=== PATIENT | female | born 1940 | race Caucasian/White ===

== ENCOUNTER 2016-09-17 08:51 | Inpatient (IN) | payer MEDICARE, OTHER ==
[2016-09-17] MEDS ORDERED: Aspirin Low Dose CHEW TAB* 81 MG ONE (09:05)
[2016-09-17] MEDS ORDERED: Heparin for STEMI(*) 5,000 UNITS/ML 1 ML VIAL IV ONE ×2 (09:05→09:07)
[2016-09-17] MEDS ORDERED: NS 0.9% 1000 ML* 1,000 ML IV ONE (09:07)
[2016-09-17] MEDS ORDERED: Aspirin Low Dose CHEW TAB* 81 MG PO ONE (09:07)
[2016-09-17] MEDS ORDERED: Midazolam* 1 MG/ML 5 ML VIAL (5 MG) ONE (09:11)
[2016-09-17] MEDS ORDERED: Iohexol 350 (CONTRAST) 200 ML MDV IV ONE (09:11)
[2016-09-17] MEDS ORDERED: Heparin 2 UNITS/ML IVPREMIX* 2,000 ML IV ONE (09:11)
[2016-09-17] MEDS ORDERED: fentaNYL* 50 MCG/ML 2 ML VIAL (100 MCG VIAL) ONE (09:11)
[2016-09-17] MEDS ORDERED: Lidocaine 1% INJ* 10 MG/ML 30 ML SDV ONE (09:11)
[2016-09-17] MEDS ORDERED: VERAPAMIL 2.5 MG/ML 4 ML VIAL ONE (09:12)
[2016-09-17] MEDS ORDERED: nitroGLYCERIN DRIP* 250 ML ONE (09:12)
[2016-09-17] MEDS ORDERED: Heparin(*) 1000 UNIT/ML 10 ML VIAL CATH LAB IV ONE (09:19)
[2016-09-17] MEDS ORDERED: Iodixanol* (CONTRAST) 320 MG/ML 100 ML SDV ONE ×2 (09:22→09:49)
[2016-09-17 09:24] LABS: Hematocrit 47 % (35-47); Hemoglobin 15.5 g/dl (12.0-16.0); Mean Corpuscular HGB Conc 33 g/dl (31-36); Mean Corpuscular Hemoglobin 28 pg (27-31); Mean Corpuscular Volume 86 fL (80-97); Mean Platelet Volume 7 um3 (7.4-10.4); Red Blood Count 5.47 10^6/ul (4.0-5.4); Red Cell Distribution Width 14 % (10.5-15); White Blood Count 7.8 10^3/ul (3.5-10.8)
[2016-09-17 09:38] LABS: Albumin 4.1 g/dL (3.2-5.2); BUN/Creatinine Ratio 28.3 (8-20); EGFR African American 76.3 (>60); EGFR Non-African American 59.4 (>60); Globulin 2.9 g/dL (2-4); Magnesium 2.1 mg/dL (1.9-2.7); Potassium 3.8 mmol/L (3.5-5.0); Total Bilirubin 0.5 mg/dL (0.2-1.0)
[2016-09-17 09:39] LABS: Troponin I 0.02 ng/mL (<0.04)
--- NOTE | 2016-09-17 09:41 | ED ---
Bill Mcdonald Adam, scribed for Morris Light MD on 09/17/16 at 0920 . HPI Chest Pain - HPI Summary HPI Summary: Pt is a 75 year old female presenting with CP that set on at 07:00 this morning while she was feeding her animals. She describes it as a discomfort that radiates across her chest. It does not radiate to her arms. She also c/o diaphoresis and SOB. Negative PMHx of SD. Negative tobacco/alcohol use. FMHx positive for CAD. - History of Current Complaint Chief Complaint: EDChestPainROMI Time Seen by Provider: 09/17/16 08:55 Hx Obtained From: Patient Onset/Duration: Started Hours Ago, Atraumatic, Still Present Timing: Constant Initial Severity: Moderate Current Severity: Moderate Pain Intensity: 5 Pain Scale Used: 0-10 Numeric Chest Pain Location: Diffuse Chest Pain Radiates: Yes Chest Pain Radiates To:: Other - Across chest Character: Other: - Discomfort Aggravating Factor(s): Nothing Alleviating Factor(s): Nothing Associated Signs and Symptoms: Positive: Shortness of Breath, Diaphoresis - Allergy/Home Medications Allergies/Adverse Reactions: Allergies Allergy/AdvReac Type Severity Reaction Status Date / Time Allopurinol Allergy Unknown Verified 09/17/16 08:56 Reaction Details Celecoxib [From Celebrex] Allergy Dizziness Verified 09/17/16 08:56 PMH/Surg Hx/FS Hx/Imm Hx Endocrine/Hematology History: Denies: Hx Diabetes, Hx Thyroid Disease Cardiovascular History: Reports: Hx Hypertension - borderline Denies: Hx Hypercholesterolemia, Hx Pacemaker/ICD, Hx Peripheral Vascular Disease Musculoskeletal History: Reports: Hx Arthritis, Hx Scoliosis - HX OF KYPHOSIS Denies: Hx Rheumatoid Arthritis, Hx Osteoporosis Sensory History: Denies: Hx Cataracts, Hx Contacts or Glasses, Hx Glaucoma, Hx Hearing Aid Opthamlomology History: Denies: Hx Cataracts, Hx Contacts or Glasses, Hx Glaucoma Neurological History: Denies: Hx Headaches, Hx Seizures, Hx Transient Ischemic Attacks (TIA) Psychiatric History: Reports: Hx Anxiety Denies: Hx Depression, Hx Panic Disorder - Cancer History Cancer Type, Location and Year: SKIN CA. LEUKEMIA 1992 - Surgical History Surgery Procedure, Year, and Place: pilonoidal cyst (1957) tubes tied (1979) Jeancarlos 's surgery for skin cancer (2008) Infectious Disease History: No Infectious Disease History: Denies: Traveled Outside the [place] in Last 30 Days - Family History Known Family History: Positive: Cardiac Disease - CAD - Social History Occupation: Retired Lives: Alone Alcohol Use: None Hx Tobacco Use: No Smoking Status (MU): Never Smoked Tobacco Review of Systems Positive: Skin Diaphoresis Positive: Chest Pain Positive: Shortness Of Breath All Other Systems Reviewed And Are Negative: Yes Physical Exam - Summary Physical Exam Summary: The patient is well-nourished in no acute distress and in no acute pain. The skin is diaphoretic. HEENT: The head is normocephalic and atraumatic. The pupils are equal and reactive. The conjunctivae are clear and without drainage. Nares are patent and without drainage. Mouth reveals moist mucous membranes and the throat is without erythema and exudate. The external ears are intact. Neck is supple with full range of motion and non-tender. There are no carotid bruits. There is no neck vein distension. Respiratory: Chest is non-tender. Lungs are clear to auscultation and breath sounds are symmetrical and equal. Cardiovascular: Heart is bradycardic. Abdomen: The abdomen is soft and non-tender. There are normal bowel sounds heard in all four quadrants and there is no organomegaly palpated. Musculoskeletal: There is no back pain noted. Extremities are non-tender with full range of motion. There is good capillary refill. There is no peripheral edema or calf tenderness elicited. Neurological: Patient is alert and oriented to person, place and time. She is able to follow commands. The patient has symmetrical motor strength in all four extremities. Cranial nerves are grossly intact. Deep tendon reflexes are symmetrical and equal in all four extremities. Psychiatric: The patient has an appropriate affect and does not exhibit any anxiety or depression. Triage Information Reviewed: Yes Vital Signs On Initial Exam: Initial Vitals Temp Pulse Resp BP Pulse Ox 96 F 50 17 165/84 96 09/17/16 08:56 09/17/16 08:56 09/17/16 08:56 09/17/16 08:56 09/17/16 08:56 Vital Signs Reviewed: Yes Diagnostics - Vital Signs Vital Signs Temp Pulse Resp BP Pulse Ox 09/17/16 08:56 96 F 50 17 165/84 96 - Laboratory Lab Results: Lab Results 09/17/16 09/17/16 Range/Units 09:10 09:10 WBC 7.8 (3.5-10.8) 10^3/ul RBC 5.47 H (4.0-5.4) 10^6/ul Hgb 15.5 (12.0-16.0) g/dl Hct 47 (35-47) % MCV 86 (80-97) fL MCH 28 (27-31) pg MCHC 33 (31-36) g/dl RDW 14 (10.5-15) % Plt Count 226 (150-450) 10^3/ul MPV 7 L (7.4-10.4) um3 Neut % (Auto) 69.2 (38-83) % Lymph % (Auto) 20.6 L (25-47) % [place] % (Auto) 7.5 (1-9) % Eos % (Auto) 2.1 (0-6) % Baso % (Auto) 0.6 (0-2) % Absolute Neuts (auto) 5.4 (1.5-7.7) 10^3/ul Absolute Lymphs (auto) 1.6 (1.0-4.8) 10^3/ul Absolute Monos (auto) 0.6 (0-0.8) 10^3/ul Absolute Eos (auto) 0.2 (0-0.6) 10^3/ul Absolute Basos (auto) 0 (0-0.2) 10^3/ul Absolute Nucleated RBC 0 10^3/ul Nucleated RBC % 0 Sodium 137 (133-145) mmol/L Potassium 3.8 (3.5-5.0) mmol/L Chloride 105 (101-111) mmol/L Carbon Dioxide 24 (22-32) mmol/L Anion Gap 8 (2-11) mmol/L BUN 26 H (6-24) mg/dL Creatinine 0.92 (0.51-0.95) mg/dL Est GFR ( Amer) 76.3 (>60) Est GFR (Non-Af Amer) 59.4 (>60) BUN/Creatinine Ratio 28.3 H (8-20) Glucose 164 H (70-100) mg/dL Calcium 10.0 (8.6-10.3) mg/dL Magnesium 2.1 (1.9-2.7) mg/dL Total Bilirubin 0.50 (0.2-1.0) mg/dL AST 26 (13-39) U/L ALT 22 (7-52) U/L Alkaline Phosphatase 64 (34-104) U/L Total Creatine Kinase 46 (10-223) U/L CK-MB (CK-2) Pending Troponin I 0.02 (<0.04) ng/mL Total Protein 7.0 (6.4-8.9) g/dL Albumin 4.1 (3.2-5.2) g/dL Globulin 2.9 (2-4) g/dL Albumin/Globulin Ratio 1.4 (1-3) LDL Cholesterol Direct 129 mg/dL Result Diagrams: 09/17/16 09:10 09/17/16 09:10 Lab Statement: Any lab studies that have been ordered have been reviewed, and results considered in the medical decision making process. - EKG 08:57 Cardiac Rate: Bradycardia - 48 BPM EKG Interpretation: ST elevations at II, III, and aVF with reciprocal changes at I, aVL, V2, V3 Chest Pain Course/Dx - Course Course Of Treatment: STEMI called at 09:04. Assessment/Plan: 09:10 - Dr. Campoverde has been made aware of the patient. She will go to the equipment operator/laborer/supervisor and be given ASA and heparin. - Diagnoses Provider Diagnoses: Acute ST elevation myocardial infarction (STEMI) During the Visit The Following Alert/Code Occurred: STEMI - Provider Notifications Discussed Care Of Patient With: Dr. Campoverde (interventional cardiology) at 09: 08. He is aware of the patient. - Critical Care Time Critical Care Time: 30-74 min - 30 minutes of criticial care time Discharge - Discharge Plan Condition: Stable Disposition: ADMITTED TO [facility] documentation as recorded by the Bill herndon Adam accurately reflects the service I personally performed and the decisions made by , Morris Light MD.
[2016-09-17] MEDS ORDERED: NitroPRUSSide* 25 MG/ML 2 ML VIAL IVPB ONE (10:34)
[2016-09-17] MEDS ORDERED: Atropine SYRINGE* 0.1 MG/ML 10 ML SYRINGE (1 MG) ONE (10:34)
[2016-09-17] MEDS ORDERED: Norepinephrine 16MCG/ML IVPRE* 4,000 MCG/250 ML BAG IV ONE (10:35)
[2016-09-17] MEDS ORDERED: Nitroglycerin TAB 0.4 MG* 0.4 MG TAB SL PRN (10:50)
[2016-09-17] MEDS ORDERED: Atropine 1MG/ML INJ* 1 ML VIAL IV PUSH PRN (10:54)
[2016-09-17] MEDS ORDERED: Acetaminophen TAB* 325 MG PO PRN (10:54)
[2016-09-17] MEDS ORDERED: Ticagrelor* 90 MG TAB PO STA (10:59)
[2016-09-17] MEDS ORDERED: NS 0.9% 1000 ML* 1,000 ML IV SCH (11:00)
[2016-09-17] MEDS: Metoprolol Tartrate TAB* 25 MG PO SCH ×2 (11:34→20:28)
[2016-09-17] MEDS ORDERED: traMADol TAB* 50 MG PO PRN (12:15)
[2016-09-17 15:24] LABS: Troponin I 9.3 ng/mL (<0.04)
[2016-09-17] MEDS: Omeprazole CAP* 20 MG PO SCH (17:28)
[2016-09-17] MEDS: Atorvastatin* 80 MG TAB PO SCH (17:28)
--- NOTE | 2016-09-17 17:37 | HP ---
HISTORY AND PHYSICAL: DATE OF ADMISSION: 09/17/16 PRIMARY CARE PHYSICIAN: Dr. Greta Casey. HISTORY OF PRESENT ILLNESS: A 75-year-old woman presenting to the ER with inferior wall ST-elevation infarct. She has no previous cardiac history. This morning, she developed severe chest pain with dyspnea, malaise. She presented in the ER, EKG at 0857 hours revealed sinus thom at 48, with inferior ST-elevation infarct with [address] elevation in II and aVF, minimal J-point ST elevation in V6, and reciprocal ST depression in I and aVL, V2 through V4. She received aspirin and heparin, was brought to the cardiac cath rn, still complaining of chest discomfort. In retrospect, she has not had any cardiac symptoms, has not had any change in exercise tolerance. She has chronic orthopedic pain issues. She does not regularly take aspirin, but tolerates it. She has a remote history of iron deficiency anemia with apparently no bleeding source found in the past, has had a normal hemoglobin on iron. PAST MEDICAL HISTORY: History of iron deficiency anemia; history of hairy cell leukemia; hypertension; hyperlipidemia with LDL of 127 in 2014; CKD, stage III, with a creatinine as high as 1.2 in the past. PREHOSPITAL MEDICATION: List pending. ALLERGIES: ALLOPURINOL and CELEBREX. FAMILY HISTORY: Negative for premature coronary disease. SOCIAL HISTORY: She is retired from [employer]. She is a nonsmoker. REVIEW OF SYSTEMS: General: No weight loss. No fevers. EMT INTERMEDIATE: No history of TIA or CVA. GI: History of iron deficiency anemia with apparently previous negative GI workup without any observed bleeding recently. Circulatory: No claudication. Remainder all negative. PHYSICAL EXAMINATION VITAL SIGNS: She was to tachypneic and in moderate pain, in moderate distress in the ER. BP initially 165/84, heart rate 50, she was afebrile. HEENT: Normal without xanthelasma, scleral injection, or jaundice. NECK: JVP and carotids normal. No bruits. No thyromegaly. LUNGS: She had a few rhonchi. No rales or wheezes. CARDIAC: Chest wall nontender, RV and apex not palpable, normal heart sounds, no gallop, murmur, or rub. ABDOMEN: Soft, nontender, no bruit. Aorta and liver not palpable. Femoral pulses 2+. EXTREMITIES: Radial pulses palpable, but the patient has a very small radial artery, the patient weighs around 50 kilos. Femoral's 2+, no bruits. Pedal pulses were normal. No cyanosis, clubbing, or edema. PSYCH: Oriented and appropriate. SKIN: Slightly cool and diaphoretic. DIAGNOSTIC STUDIES/LAB DATA: EKG as above. CBC unremarkable with hemoglobin of 15.5, normal platelet count, normal MCV. Chemistries normal aside from creatinine of 0.92, BUN 26, GFR 59.4, lactate elevated at 2.1. Her BNP normal at 37. LDL pending. IMPRESSION: 1. Inferior wall ST-elevation infarct. She underwent emergent catheterization. 2. Hypertension, controlled. 3. Hyperlipidemia. She will be started on high-dose potent statin. 4. History of iron-deficiency anemia, apparently no longer an issue. CC: Dr. Greta Casey; Dr. Skinny Campoverde* [id number]/[facility] #: [id number] MTDD
[2016-09-17] MEDS: Ticagrelor* 90 MG TAB PO SCH (20:28)
[2016-09-18 02:53] LABS: Hematocrit 42 % (35-47); Mean Corpuscular HGB Conc 34 g/dl (31-36); Mean Corpuscular Hemoglobin 29 pg (27-31); Mean Corpuscular Volume 85 fL (80-97); Mean Platelet Volume 8 um3 (7.4-10.4); Red Blood Count 4.89 10^6/ul (4.0-5.4); Red Cell Distribution Width 13 % (10.5-15); White Blood Count 8.7 10^3/ul (3.5-10.8)
[2016-09-18 03:02] LABS: BUN/Creatinine Ratio 25.3 (8-20); Calcium 9.2 mg/dL (8.6-10.3); EGFR Non-African American 66.8 (>60); HDL Cholesterol 52.1 mg/dL; Potassium 3.5 mmol/L (3.5-5.0)
[2016-09-18] MEDS: Metoprolol Tartrate TAB* 25 MG PO SCH ×3 (03:48→19:13)
[2016-09-18] MEDS: Omeprazole CAP* 20 MG PO SCH (06:35)
[2016-09-18] MEDS: Ticagrelor* 90 MG TAB PO SCH ×2 (08:02→21:28)
[2016-09-18] MEDS: Aspirin Low Dose CHEW TAB* 81 MG PO SCH (08:02)
[2016-09-18] MEDS: Fluticasone NASAL SPRAY 50MCG* 16 gm SPRAY BTL BOTH NARES SCH (10:16)
[2016-09-18] MEDS: Potassium Chlor TAB* 20 MEQ TAB.ER PO SCH ×2 (10:16→12:54)
[2016-09-18 11:30] LABS: Troponin I 7.84 ng/mL (<0.04)
[2016-09-18] MEDS: Atorvastatin* 80 MG TAB PO SCH (16:58)
[2016-09-19] MEDS: Metoprolol Tartrate TAB* 25 MG PO SCH ×3 (03:21→20:04)
[2016-09-19] MEDS: Omeprazole CAP* 20 MG PO SCH (05:43)
[2016-09-19 05:57] LABS: Hematocrit 41 % (35-47); Hemoglobin 13.8 g/dl (12.0-16.0); Mean Corpuscular HGB Conc 33 g/dl (31-36); Mean Corpuscular Hemoglobin 29 pg (27-31); Mean Corpuscular Volume 85 fL (80-97); Mean Platelet Volume 8 um3 (7.4-10.4); Red Blood Count 4.82 10^6/ul (4.0-5.4); Red Cell Distribution Width 14 % (10.5-15); White Blood Count 5.6 10^3/ul (3.5-10.8)
[2016-09-19 06:22] LABS: BUN/Creatinine Ratio 21.7 (8-20); Calcium 9.1 mg/dL (8.6-10.3); EGFR Non-African American 66.8 (>60); Phosphorus 2.5 mg/dL (2.5-5.0); Potassium 3.9 mmol/L (3.5-5.0)
[2016-09-19 06:27] LABS: Troponin I 2.96 ng/mL (<0.04)
[2016-09-19] MEDS: Ticagrelor* 90 MG TAB PO SCH ×2 (08:13→20:04)
[2016-09-19] MEDS: Fluticasone NASAL SPRAY 50MCG* 16 gm SPRAY BTL BOTH NARES SCH (08:14)
[2016-09-19] MEDS: Aspirin Low Dose CHEW TAB* 81 MG PO SCH (08:14)
--- NOTE | 2016-09-19 08:50 | CATH ---
CC: Dr. Greta Casey; Skinny Campoverde MD STENT REPORT: DATE OF PROCEDURE: 09/17/16 PRIMARY CARE PHYSICIAN: Dr. Greta Casey. PROCEDURES: Right common femoral artery access, right femoral artery angiography, MynxGrip closure right common femoral artery, bilateral selective coronary cineangiography, left heart catheterizatio n, left ventriculography, stent placement RCA 3.0 x 12 Synergy drug-eluting stent. HISTORY: This 75-year-old woman with acute inferior wall ST elevation infarct. PROCEDURE ACCESS: Right femoral artery as her right radial was deemed to be too small. Sheath 6F. The patient's weight is 59 kilos. MEDICATIONS: 1. Subcu lidocaine. 2. IV Versed. 3. IV fentanyl. 4. Aspirin 324. 5. Heparin 4000 units IV in the ER. 6. landscaping and groundskeeping laborer heparin 2000 units IV. 7. Atropine 1 mg IV post revascularization for bradycardia. 8. Nipride 1000 mcg total IC post stenting with Levophed 16, 16, 32 mcg IV for blood pressure suppo rt. DIAGNOSTIC CATHETERS: 6FL 3.5, 6FR 4, 6F pigtail. Guiding catheter RCA 6F KR3S, wire 14 BMW used to deploy a 3.0 x 12 Synergy drug- eluting stent at 1 6 atmospheres 30 seconds, which was then post dilated with a 3 x 12 noncompliant balloon, 20 atmosph eres, 30 seconds, LV-gram was then performed. After initial right femoral artery access, the right groin was imaged, in positioning the shield, pa rtially pulled out the arterial sheath but it remained intra-arterial, however. With readvancement of the wire, there was a localized retrograde dissection which was traversed using a Wholey wire aft er the sheath was pulled out somewhat more distally, but still intraluminally. This was re-imaged a t that the end of the procedure. HEMODYNAMICS: Initial BP 116/80, LV post revascularization 114/6, no aortic valve gradient on pullb ack. ANGIOGRAPHY: RFA sheath entry is in segment 2, there is no stenosis. After the sheath was partiall y pulled out, there was a localized retrograde dissection at the tip of the sheath. Left Main: The left main is normal in size, has no stenosis. LAD: The LAD is moderate, extends to the apex, the LAD supplies a relatively small mid diagonal whi ch has minor proximal lumen irregularity but no significant stenosis. The LAD has no significant st enosis. The LAD supplies the infraapical segment. Circumflex: The circumflex is moderate, not dominant, supplies a moderate marginal and a smaller po sterolateral, the circumflex has no stenosis. There are no left to right collaterals. RCA: The RCA is moderate, dominant, mid RCA has a 95% stenosis, straddling 2 RV branches. Distal R CA has LANEY-2 flow. The PDA is very small followed by moderate posterolateral. After stent placement, post dilatation, there is no residual stenosis. There is slight delay of cap illary clearing even after 1000 mcg of IC Nipride, although chest pain was resolved, ST elevation wa s resolved. Distal RCA has no significant stenosis. Incidentally noted is a probable hiatal hernia with part of the stomach within the chest. LV-gram: There is mild localized mid inferior wall hypokinesis, LVEF of 55% to 60%. Reimaging of the right common femoral shows a widely patent external iliac and common femoral, with a nonobstructive retrograde dissection. Incidentally noted is right hydroureter with a fairly focal area of narrowing shortly after the pelvis, then reconstitution of the ureter and dilatation, then at the lower pelvis, the ureter is more normal in size. CONCLUSION: 1. Significant single vessel disease RCA with inferior wall ST elevation infarct. Excellent angiogr aphic result with drug-eluting stent placement. 2. Normal LVEF with very mild regional wall motion abnormality. 3. Normal left-sided hemodynamics. 4. 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 5. Successful MynxGrip closure, right common femoral artery. 6. Right hydroureter which will be pursued independently. [id number]/[facility] #: [id number]
[2016-09-19] MEDS: Atorvastatin* 80 MG TAB PO SCH (17:23)
[2016-09-20 08:01] VITALS: BP 144/82
[2016-09-20] MEDS: Aspirin Low Dose CHEW TAB* 81 MG PO SCH (08:13)
[2016-09-20] MEDS: Fluticasone NASAL SPRAY 50MCG* 16 gm SPRAY BTL BOTH NARES SCH (08:13)
[2016-09-20] MEDS: Metoprolol Tartrate TAB* 25 MG PO SCH (08:13)
[2016-09-20] MEDS ORDERED: Pantoprazole TAB (NF) 40 MG TAB PO SCH (09:00)
[2016-09-20] MEDS ORDERED: Clopidogrel TAB* 75 MG PO SCH (09:00)
--- NOTE | 2016-09-21 01:59 | DS ---
DISCHARGE SUMMARY: DATE OF ADMISSION: 09/17/16 DATE OF DISCHARGE: 09/20/16 PRIMARY: Dr. Greta Casey. DISCHARGE DIAGNOSES: 1. Inferior wall ST elevation infarct. 2. Right hydroureter. 3. Prior history of iron deficiency anemia. 4. History of hairy cell leukemia. 5. Hypertension. 6. Hyperlipidemia. 7. Chronic kidney disease stage 3. PROCEDURES: Cardiac cath, stent placement RCA 3.0 x 12 LIZETTE 09/17/16, Mynx Sand Cutter closure, right common femoral artery. Telemetry. CONDITION ON DISCHARGE: Stable. DISCHARGE MEDICATIONS: 1. Aspirin 81 mg daily. 2. Lipitor 80 mg daily. 3. Plavix 75 mg daily. 4. Lopressor 25 mg b.i.d. 5. Nitroglycerin 0.4 sublingual p.r.n. continued. 6. Tramadol p.r.n. 7. Flonase. 8. Calcium carbonate. 9. Vitamins. 10. Fish oil. 11. Melatonin. 12. Triamcinolone. 13. Multiple vitamins with iron. 14. Iron sulfate 325 b.i.d. 15. Voltaren gel. 16. Morgidox 100 mg p.o. p.r.n. 17. Alendronate. 18. Naprosyn to minimize daily dose and frequency of use. 19. Prilosec 20 mg daily. FOLLOWUP: Followup with Dr. Casey in [address] Campoverde next week for wound check. DISCHARGE INSTRUCTIONS: Activity: No strenuous exertion for 1 week, to not lift more than 20 pounds for 3 days. Wound care shower only for 3 days. Diet: Low fat, low cholesterol, cardiac. HISTORY: See H and P. LABORATORY DATA: On 09/19/16, BMP remained stable with creatinine 0.83, GFR 66.8. Her troponin peaked at 9.3, cholesterol was 117, triglycerides 117, LDL 95 , HDL 52.1. CBC remained stable, on 09/19/16 white count normal, hemoglobin 13.8, platelet count normal at 178,000. Her EKG post revascularization developed inferior T-wave inversion without Q waves. HOSPITAL COURSE: She presented with an inferior wall ST elevation infarct, underwent emergent catheterization, which revealed a high grade proximal RCA stenosis and incidental right hydroureter. Her urinary tract dilatation will be worked up as an outpatient by Dr. Casey. RCA stenosis was stented with a 3 x 12 drug-eluting stent, post dilated with a noncompliant balloon. LV gram showed very mild mid inferior wall hypokinesis with EF of 55%. There was a short localized nonobstructive retrograde dissection at the sheath entry site in the right common femoral, which was without clinical sequelae. Postprocedure , she had no groin complications. No further chest pain, no arrhythmias and no heart failure. She has small infarct by enzymes with preserved LVEF. She tolerated dual antiplatelet therapy, because of her use of her Naprosyn she is being discharged on Plavix and aspirin. She was asked to minimize Naprosyn dose and frequency of use as much as possible. She is on gastro protection, understands the somewhat increased GI bleeding risk. She is ambulatory, on the day of discharge, vitals stable. Her exam is unremarkable. There was no groin hematoma. She received full discharge instructions. CC: Dr. Greta Casey; Skinny Campoverde MD* [id number]/[facility] #: [id number] [facility] HOSPITALMakenzie
== END 2016-09-20 11:47 | disposition home or self-care (01) | DRG 247 ==
LOC: ED 08:51 → CHICATH 10:06 → ICU 11:14 → MEDTELE 09-18 14:56
PROVIDERS: ADMIT Internal Medicine Cardiovascular Disease; ATTEND Internal Medicine Cardiovascular Disease
PROC: 027034Z Dilation of Coronary Artery, One Artery with Drug-eluting Intraluminal Device, Percutaneous Approach (ICD-10-PCS; 2016-09-17)
PROC: B215YZZ Fluoroscopy of Left Heart using Other Contrast (ICD-10-PCS; 2016-09-17)
PROC: 4A023N7 Measurement of Cardiac Sampling and Pressure, Left Heart, Percutaneous Approach (ICD-10-PCS; 2016-09-17)
PROC: B41JYZZ Fluoroscopy of Other Lower Arteries using Other Contrast (ICD-10-PCS; 2016-09-17)
PROC: B211YZZ Fluoroscopy of Multiple Coronary Arteries using Other Contrast (ICD-10-PCS; principal; 2016-09-17 09:15)
DX: I21.19 ST elevation (STEMI) myocardial infarction involving other coronary artery of inferior wall (principal); N18.3 Chronic kidney disease, stage 3 (moderate); N13.4 Hydroureter; M19.90 Unspecified osteoarthritis, unspecified site; M41.9 Scoliosis, unspecified; F41.9 Anxiety disorder, unspecified; G89.29 Other chronic pain; E78.5 Hyperlipidemia, unspecified; Z79.02 Long term (current) use of antithrombotics/antiplatelets; I12.9 Hypertensive chronic kidney disease with stage 1 through stage 4 chronic kidney disease, or unspecified chronic kidney disease; K21.9 Gastro-esophageal reflux disease without esophagitis; F32.9 Major depressive disorder, single episode, unspecified; J34.89 Other specified disorders of nose and nasal sinuses; Z82.49 Family history of ischemic heart disease and other diseases of the circulatory system; Z88.8 Allergy status to other drugs, medicaments and biological substances; Z85.828 Personal history of other malignant neoplasm of skin; Z85.6 Personal history of leukemia; Z79.82 Long term (current) use of aspirin; I25.10 Atherosclerotic heart disease of native coronary artery without angina pectoris
CPT/HCPCS: 36415; 80048; 80053; 80061; 82550; 82553; 83605; 83721; 83735; 83880; 84100; 84484; 85025; 85027; 85610; 85730; 87086; 87641; 93005; A9270-GY; C1725; C1760; C1769; C1876; C1887; C9606-RC; J0461; J1644; J2001; J2250; J3010

== ENCOUNTER 2017-04-15 12:51 | Emergency (ER) | payer MEDICARE, OTHER ==
--- NOTE | 2017-04-15 17:23 | RAD ---
HISTORY: Fall from horse, anticoagulation COMPARISONS: None TECHNIQUE: Multiple contiguous axial CT scans were obtained of the head without intravenous contrast. FINDINGS: HEMORRHAGE/INFARCT: There is no hemorrhage or acute infarct. MASSES/SHIFT: There is no mass or shift. EXTRA-AXIAL SPACES: There are no extra-axial fluid collections. SULCI AND VENTRICLES: The sulci and ventricles are normal in size and position for the patient's stated age. CEREBRUM: There are no focal parenchymal abnormalities. BRAINSTEM: There are no focal parenchymal abnormalities. CEREBELLUM: There are no focal parenchymal abnormalities. VESSELS: The vessels are grossly normal. PARANASAL SINUSES: The paranasal sinuses are clear. ORBITS: The orbits are unremarkable. BONES AND SOFT TISSUE: No bone or soft tissue abnormalities are noted. OTHER: None IMPRESSION: NO ACUTE INTRACRANIAL PATHOLOGY.
--- NOTE | 2017-04-15 17:37 | RAD ---
HISTORY: Fall from horse, trauma one week ago no other history is provided COMPARISONS: None TECHNIQUE: Multiple contiguous axial CT scans were obtained of the cervical spine without intravenous contrast, with coronal and sagittal multiplanar reformations. FINDINGS: BRAIN: The visualized brain is unremarkable CENTRAL CANAL: Evaluation of the central canal is limited on CT technique, however there is no obvious canalicular mass or epidural hemorrhage. ALIGNMENT: There is a scoliotic curvature of the spine VERTEBRAL BODIES: There is diffuse osteopenia. Is multilevel anterolateral marginal osteophyte formation. There is no displaced fracture or dislocation. JOINTS: There is diffuse uncovertebral and facet osteoarthritis. There is osteoarthritis of the atlantoaxial articulation. MUSCULATURE: Unremarkable INTERVERTEBRAL DISCS: There is diffuse loss of intervertebral disc height. AXIAL IMAGES: There is multilevel degenerative disc disease and osteoarthritis, without osseous neural foraminal narrowing or central canal stenosis. SOFT TISSUES: The visualized soft tissues of the neck are unremarkable. The prevertebral fat stripe is preserved. OTHER: There is a 1.2 cm right thyroid nodule IMPRESSION: 1. OSTEOPENIA. 2. DEGENERATIVE DISC DISEASE AND OSTEOARTHRITIS. 3. RIGHT THYROID NODULE. RECOMMEND CORRELATION WITH DEDICATED IMAGING OF THE THYROID IN THE NONACUTE SETTING. 4. NO ACUTE OSSEOUS INJURY TO THE CERVICAL SPINE
--- NOTE | 2017-04-15 17:40 | RAD ---
HISTORY: Fall, subacute trauma COMPARISONS: None TECHNIQUE: Multiple contiguous axial CT scans were obtained of the thoracic spine without intravenous contrast, with coronal and sagittal multiplanar reformations. FINDINGS: SPINAL CANAL: Evaluation of the central canal is limited on CT technique; however, there is no obvious canalicular mass or epidural hemorrhage. ALIGNMENT: There is a scoliotic curvature of the spine VERTEBRAL BODIES: The vertebral bodies are preserved in height. The bones are normal in attenuation. There is multilevel anterolateral marginal osteophyte formation. There is no displaced fracture. JOINTS: There is osteoarthritis of the costovertebral articulations. MUSCULATURE: Unremarkable INTERVERTEBRAL DISCS: There is diffuse loss of intervertebral disc height throughout the spine. AXIAL IMAGES: There is no osseous central canal stenosis or neuroforaminal narrowing. SOFT TISSUES: There is a large reid hernia. OTHER: None IMPRESSION: 1. OSTEOPENIA. 2. DEGENERATIVE DISC DISEASE AND OSTEOARTHRITIS. 3. NO SIGNIFICANT OSSEOUS NEURAL FORAMINAL NARROWING OR CENTRAL CANAL STENOSIS. 4. NO ACUTE OSSEOUS INJURY TO THE THORACIC SPINE. 5. SCOLIOSIS. 6. LARGE HIATAL HERNIA
--- NOTE | 2017-04-15 17:42 | RAD ---
HISTORY: Fall from horse, subacute trauma COMPARISONS: MRI dated May 12, 2014 TECHNIQUE: Multiple contiguous axial CT scans were obtained of the lumbar spine without intravenous contrast, with coronal and sagittal multiplanar reformations. FINDINGS: SPINAL CANAL: Evaluation of the central canal is limited on CT technique; however, there is no obvious canalicular mass or epidural hemorrhage. ALIGNMENT: There is a scoliotic curvature of the spine. VERTEBRAL BODIES: There are nondisplaced fractures of the transverse processes of L1, L2, L3, and L4 on the right. There is diffuse osteopenia. Is multilevel anterolateral marginal osteophyte formation. JOINTS: There is diffuse facet osteoarthritis. MUSCULATURE: Unremarkable INTERVERTEBRAL DISCS: There is diffuse loss of intervertebral disc height throughout the spine. AXIAL IMAGES: On axial images, there is multilevel neural foraminal narrowing most pronounced along the lower lumbar spine, there is no osseous central canal stenosis. SOFT TISSUES: The visualized soft tissues of the abdomen are unremarkable. OTHER: There is a nondisplaced fracture of the right 12th rib. IMPRESSION: 1. NONDISPLACED FRACTURES OF THE TRANSVERSE PROCESSES OF L1, L2, L3, AND L4 ON THE RIGHT, WITH A NONDISPLACED FRACTURE OF THE RIGHT 12TH RIB. 2. OSTEOPENIA. 3. DEGENERATIVE DISC DISEASE AND OSTEOARTHRITIS. 4. SCOLIOSIS.
--- NOTE | 2017-04-15 18:11 | ED ---
Adult Trauma - HPI Summary HPI Summary: Pt here w/ back pain and feeling loose parts in her back since fall from horse last week. Landed directly on her back. She has been ambulating well and denies numbness, tingling, weakness, change in bowels/bladder function. She is breathing well and w/o pain. Only pain she has is when she tries to clean out her horse stalls - most notably between shoulder blades but also along Rt lower axillary/side - noticed pain in back with lifting and throwing hay. Spoke w/ Dr. Long who told her to go to ED. She has scoliosis, DDD and osteopenia which gives her chronic pain but she manages. Enjoys being active and is upset that she has not been able to take care of her horses d/t pain. - History of Current Complaint Chief Complaint: EDBackInjuryPain Stated Complaint: NEEDS XRAY OF SPINE Time Seen by Provider: 04/15/17 16:27 Hx Obtained From: Patient Pain Intensity: 0 - Additional Pertinent History Primary Care Physician: [id number] - Allergy/Home Medications Allergies/Adverse Reactions: Allergies Allergy/AdvReac Type Severity Reaction Status Date / Time Allopurinol Allergy Mild Rash Verified 03/11/17 09:44 Celecoxib [From Celebrex] Allergy Mild Dizziness Verified 03/11/17 09:44 PMH/Surg Hx/FS Hx/Imm Hx Previously Healthy: Yes Endocrine/Hematology History: Reports: Hx Anticoagulant Therapy - pradaxa, ASA Denies: Hx Diabetes, Hx Thyroid Disease Cardiovascular History: Reports: Hx Coronary Artery Disease, Hx Hypertension, Hx Myocardial Infarction - stent Denies: Hx Hypercholesterolemia, Hx Pacemaker/ICD, Hx Peripheral Vascular Disease History: Reports: Other Problems/Disorders - 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 Denies: Hx Dialysis, Hx Renal Disease Musculoskeletal History: Reports: Hx Arthritis, Hx Osteoporosis - osteopenia, Hx Scoliosis - HX OF KYPHOSIS Denies: Hx Rheumatoid Arthritis Sensory History: Denies: Hx Cataracts, Hx Contacts or Glasses, Hx Glaucoma, Hx Hearing Aid Opthamlomology History: Denies: Hx Cataracts, Hx Contacts or Glasses, Hx Glaucoma Neurological History: Denies: Hx Headaches, Hx Seizures, Hx Transient Ischemic Attacks (TIA) Psychiatric History: Reports: Hx Anxiety Denies: Hx Depression, Hx Panic Disorder - Cancer History Cancer Type, 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, in remission - Surgical History Surgery Procedure, Year, and Place: pilonoidal cyst (1958) tubes tied (1979) Jeancarlos 's surgery for skin cancer (2008) Infectious Disease History: No Infectious Disease History: Denies: Hx of Known/Suspected MRSA, Traveled Outside the [place] in Last 30 Days - Family History Known Family History: Positive: Cardiac Disease - CAD - Social History Occupation: Retired - works in [employer] Lives: Alone - "I'm anti-social" Alcohol Use: None Hx Substance Use: No Substance Use Type: Reports: None Substance Use Comment - Amount & Last Used: unknwon Hx Tobacco Use: No Smoking Status (MU): Never Smoked Tobacco Review of Systems Constitutional: Negative Negative: Fatigue Eyes: Negative Negative: Photophobia, Blurred Vision, Diplopia ENT: Negative Negative: Dental Pain Cardiovascular: Negative Negative: Chest Pain Respiratory: Negative Negative: Shortness Of Breath, Cough Gastrointestinal: Negative Negative: Abdominal Pain, Vomiting, Diarrhea, Nausea Negative: incontinence Positive: Arthralgia, Myalgia - see HPI Skin: Negative Neurological: Negative Negative: Headache, Weakness, Paresthesia, Numbness, Syncope, Slurred Speech Psychological: Normal All Other Systems Reviewed And Are Negative: Yes Physical Exam Triage Information Reviewed: Yes Vital Signs On Initial Exam: Initial Vitals Temp Pulse Resp BP Pulse Ox 97.2 F 55 16 186/85 98 04/15/17 12:56 04/15/17 12:56 04/15/17 12:56 04/15/17 12:56 04/15/17 12:56 Vital Signs Reviewed: Yes Appearance: Positive: Well-Appearing, No Pain Distress - at rest, Well- Nourished - kyphotic posture Skin: Positive: Warm, Dry Head/Face: Positive: Normal Head/Face Inspection Eyes: Positive: Normal, EOMI, LULU, Conjunctiva Clear ENT: Positive: Normal ENT inspection, Hearing grossly normal, TM bulging - no hemotympanum. Negative: Nasal drainage Neck: Positive: Supple, Nontender Respiratory/Lung Sounds: Positive: Clear to Auscultation, Breath Sounds Present. Negative: Subcutaneous Emphysema, Tracheal Deviation, Unable to speak in full sentences, Other - flail chest Cardiovascular: Positive: Normal, RRR, Pulses are Symmetrical in both Upper and Lower Extremities Abdomen Description: Positive: Nontender, No Organomegaly, Soft Bowel Sounds: Positive: Present Musculoskeletal: Positive: Strength/ROM Intact, Pain @ - paracervical thoracic/ lumbar region and spinous pp; scoliosis w/ kyphosis Neurological: Positive: Normal, Sensory/Motor Intact, Alert, Oriented to Person Place, Time, CN Intact II-III Psychiatric: Positive: Normal, Other - irritable, inpatient - [place] Coma Scale Coma Scale Total: 15 Diagnostics - Vital Signs Vital Signs Temp Pulse Resp BP Pulse Ox 04/15/17 15:24 97.5 F 56 22 176/84 100 04/15/17 12:56 97.2 F 55 16 186/85 98 - Laboratory Lab Statement: Any lab studies that have been ordered have been reviewed, and results considered in the medical decision making process. Adult Trauma Course/Dx - Course Course Of Treatment: Pt here w/ fall from horse 1 week ago. She is here by request of her pain management physician as she has been having pain w/ regular activities of cleaning stalls, etc. She reports no pain at this time and doesn' t want anything for pain. CT reports reviewed and reveal only acute pathology as L1-4 transverse p nondisplaced fx's as well as 12th Rt rib fx. Other CT's are neg for acute pathology. Discussed w/ Dr. Butterfield (neurosurg) who advised flexion/extension XR's of lumbar spine. *If stable, d/c w/ rest and lumbar brace - f/u w/ neurosurgery next week. *If unstable[place] [facility] [place] UPDATE: Lumbar XR's do not reveal instability - Diagnoses Provider Diagnoses: Closed fracture of transverse process of lumbar vertebra, Right rib fracture, Fall from horse Discharge - Discharge Plan Condition: Stable Disposition: HOME Patient Education Materials: How to Use an Incentive Spirometer (ED), Rib Fracture (ED), Thoracolumbar Fracture (ED), Clamshell Brace (ED) Referrals: Greta Casey MD [Primary Care Provider] - Kacie Butterfield MD [Medical Doctor] - Additional Instructions: Rest Avoid lifting, bending, twisting movements You may take acetaminophen 650mg every 6 hours for pain Follow-up with Dr. Butterfield next week for follow-up care - call tomorrow to schedule appointment Also, call [facility] for a lumbar brace - they will measure you for a good fit - call tomorrow to schedule appointment: Located at: [address] [place] [address] ([facility]) Follow-up with PCP for rib fracture. Call tomorrow to schedule follow-up. Make sure to take deep breathes throughout the day to prevent lung collapse, pneumonia - use incentive spirometer to help exercise your lungs. *If you develop numbness, tingling, weakness, fever, chills, shortness of breath or difficulty breathing return to ED
--- NOTE | 2017-04-15 19:15 | RAD ---
HISTORY: Lumbar fractures COMPARISONS: None VIEWS: 3 , frontal, lateral flexion, lateral extension views of the lumbar spine FINDINGS: ALIGNMENT: There is a scoliotic curvature of the spine. There is no subluxation with flexion and extension. There is no appreciable excursion with flexion and extension. VERTEBRAL BODIES: There is diffuse osteopenia. There is multilevel anterolateral marginal osteophyte formation. The transverse process fractures noted on CT are not well visualized on the current examination given technique and obliquity. JOINTS: There is extensive facet hypertrophic change INTERVERTEBRAL DISCS: There is diffuse loss of intervertebral disc height. SOFT TISSUE: Unremarkable. OTHER: The pelvis is unremarkable. The lung bases are clear. IMPRESSION: LIMITED STUDY. WHILE THERE IS NO SUBLUXATION WITH FLEXION AND EXTENSION, THERE IS NO APPRECIABLE EXCURSION WITH FLEXION AND EXTENSION.
[2017-04-15 19:54] VITALS: BP 150/82
== END 2017-04-15 19:54 | disposition home or self-care (01) ==
LOC: ED 12:51
DX: S32.009A Unspecified fracture of unspecified lumbar vertebra, initial encounter for closed fracture (principal); S22.31XA Fracture of one rib, right side, initial encounter for closed fracture; M54.9 Dorsalgia, unspecified; H53.8 Other visual disturbances; V80.010A Animal-rider injured by fall from or being thrown from horse in noncollision accident, initial encounter; Y93.9 Activity, unspecified; Y92.9 Unspecified place or not applicable
CPT/HCPCS: 70450; 72100; 72125; 72128; 72131; 99282

== ENCOUNTER 2017-05-28 11:45 | Day surgery (SDC) | payer MEDICARE, OTHER ==
[~2017-05-28 11:45] MED LIST: Acetaminophen TAB* 325 MG PO PRN; Buffered Lidocaine 0.9% SYRIN* 5 ML/SYR SYRINGE INTRADERM ONE; Cyclopentolate 1% OPTH.SOL* 2 ML BTL ONE; Ketorolac 0.5% OPHTH (NF) 0.5 % 5 ML BTL ONE; Lidocaine 1% MPF* 2 ML VIAL ONE; Neomycin/Polymy/Dex OPHTH.OIN* 3.5 GM ONE; Phenylephrine 2.5% OPTH.SOL* 2 ML BTL ONE; Tetracaine 0.5% OPTH.SOL 4 ML* 1 DROP BTL ONE; Tropicamide 1% OPTH.SOL* BTL ONE
[2017-05-28] MEDS ORDERED: Midazolam* 1 MG/ML 2 ML VIAL (2 MG) ONE (12:08)
[2017-05-28] MEDS ORDERED: fentaNYL* 50 MCG/ML 2 ML VIAL (100 MCG VIAL) ONE (12:08)
--- NOTE | 2017-05-28 13:22 | OP ---
DATE OF OPERATION/DATE OF DICTATION: 05/28/2017 - [facility] DATE OF : 1940. SURGEON: Dr. Scout Funes. SETTER AUTOMATIC SPINNING LATHE: None. ANESTHESIOLOGIST: Kenyatta Gaming MD ANESTHESIA: Topical with intravenous sedation. PRE-OP DIAGNOSIS: Cataract, right eye. POST-OP DIAGNOSIS: Cataract, right eye. OPERATIVE PROCEDURE: Phacoemulsification and cataract extraction with posterior chamber intraocular lens implant, right eye. COMPLICATIONS: None. BLOOD LOSS: None. DESCRIPTION OF PROCEDURE: The patient was brought to the operating room and received a small amount of intravenous sedation. A drop of Tetracaine was placed in her right eye. She was prepped and draped in the usual sterile fashion for ophthalmic surgery and attention was directed to the right eye where a speculum was placed. A paracentesis was created at the 11 o'clock position and 0.1 cc of 1 percent preservative-free Lidocaine was injected into the anterior chamber followed by DisCoVisc. The eye was digitally stabilized while a 2.75 mm keratome was used to create a triplanar clear corneal incision at the 9 o'clock position. A continuous curvilinear capsulorrhexis was created with a cystotome and Utrata forceps. BSS on a cannula was used to hydrodissect the lens from the capsule. Phacoemulsification was performed in a divide-and- conquer technique to create four fragments which were removed. Residual cortical material was removed with irrigation and aspiration. DisCoVisc was used to inflate the capsular bag and an AUOOTO 19.5 diopter lens was folded and inserted into the capsular bag. DisCoVisc was removed using irrigation and aspiration. BSS on a cannula was used to hydrate the corneal stroma and seal the wound. At the end of the case the pupil was round and the lens was centered. The eye was of normal pressure and the wound was water tight. The speculum was removed and topical Maxitrol ointment was placed on the surface of the eye. The eye was closed, patched and shielded and the patient was sent to the recovery room in stable condition with post operative instructions and follow-up appointment given. [id number]/CPS #: [id number] CIPRIANO
[2017-05-28 14:05] VITALS: BP 146/74
== END 2017-05-28 13:56 | disposition home or self-care (01) ==
LOC: OREAST 11:45
PROVIDERS: ATTEND Ophthalmology
DX: H25.11 Age-related nuclear cataract, right eye (principal); K21.9 Gastro-esophageal reflux disease without esophagitis; M19.90 Unspecified osteoarthritis, unspecified site; M81.0 Age-related osteoporosis without current pathological fracture; F41.9 Anxiety disorder, unspecified; I25.2 Old myocardial infarction; Z79.899 Other long term (current) drug therapy; I25.10 Atherosclerotic heart disease of native coronary artery without angina pectoris; Z95.5 Presence of coronary angioplasty implant and graft; N18.3 Chronic kidney disease, stage 3 (moderate); Z79.01 Long term (current) use of anticoagulants; Z85.6 Personal history of leukemia
CPT/HCPCS: A9270-GY; J2250; J3010; V2632

== ENCOUNTER 2017-06-04 08:44 | Day surgery (SDC) | payer MEDICARE, OTHER ==
[2017-06-04] MEDS ORDERED: Metoprolol Tartrate TAB* 25 MG ONE (08:59)
[2017-06-04] MEDS ORDERED: Cyclopentolate 1% OPTH.SOL* 2 ML BTL ONE (09:09)
[2017-06-04] MEDS ORDERED: Lidocaine 1% MPF* 2 ML VIAL ONE (09:09)
[2017-06-04] MEDS ORDERED: Tropicamide 1% OPTH.SOL* BTL ONE (09:09)
[2017-06-04] MEDS ORDERED: Phenylephrine 2.5% OPTH.SOL* 2 ML BTL ONE (09:09)
[2017-06-04] MEDS ORDERED: Neomycin/Polymy/Dex OPHTH.OIN* 3.5 GM ONE (09:09)
[2017-06-04] MEDS ORDERED: Tetracaine 0.5% OPTH.SOL 4 ML* 1 DROP BTL ONE (09:09)
[2017-06-04] MEDS ORDERED: Ketorolac 0.5% OPHTH (NF) 0.5 % 5 ML BTL ONE (09:09)
[2017-06-04] MEDS ORDERED: Midazolam* 1 MG/ML 2 ML VIAL (2 MG) ONE (09:10)
[2017-06-04] MEDS ORDERED: fentaNYL* 50 MCG/ML 2 ML VIAL (100 MCG VIAL) ONE (09:10)
[2017-06-04 10:07] VITALS: BP 150/79
--- NOTE | 2017-06-04 11:36 | OP ---
DATE OF OPERATION/DATE OF DICTATION: 06/04/2017 - [facility] DATE OF : 1940. SURGEON: Dr. Scout Funes. COMMISSIONER OF OFFICIALS: None. ANESTHESIOLOGIST: Gregory Reyes MD ANESTHESIA: Topical with intravenous sedation. PRE-OP DIAGNOSIS: Cataract, left eye. POST-OP DIAGNOSIS: Cataract, left eye. OPERATIVE PROCEDURE: Phacoemulsification and cataract extraction with posterior chamber intraocular lens implant, left eye. COMPLICATIONS: None. BLOOD LOSS: None. DESCRIPTION OF PROCEDURE: The patient was brought to the operating room and received a small amount of intravenous sedation. A drop of Tetracaine was placed in her left eye. She was prepped and draped in the usual sterile fashion for ophthalmic surgery and attention was directed to the left eye where a speculum was placed. A paracentesis was created at the 5 o'clock position and 0.1 cc of 1 percent preservative-free Lidocaine was injected into the anterior chamber followed by DisCoVisc. The eye was digitally stabilized while a 2.75 mm keratome was used to create a triplanar clear corneal incision at the 3 o'clock position. A continuous curvilinear capsulorrhexis was created with a cystotome and Utrata forceps. BSS on a cannula was used to hydrodissect the lens from the capsule. Phacoemulsification was performed in a divide-and- conquer technique to create four fragments which were removed. Residual cortical material was removed with irrigation and aspiration. DisCoVisc was used to inflate the capsular bag and an AUOOTO 19.5 diopter lens was folded and inserted into the capsular bag. DisCoVisc was removed using irrigation and aspiration. BSS on a cannula was used to hydrate the corneal stroma and seal the wound. At the end of the case the pupil was round and the lens was centered. The eye was of normal pressure and the wound was water tight. The speculum was removed and topical Maxitrol ointment was placed on the surface of the eye. The eye was closed, patched and shielded and the patient was sent to the recovery room in stable condition with post operative instructions and follow-up appointment given. [id number]/CPS #: [id number] [facility]ITAL[facility]akenzie
== END 2017-06-04 10:28 | disposition home or self-care (01) ==
LOC: OREAST 08:44
PROVIDERS: ATTEND Ophthalmology
DX: H25.12 Age-related nuclear cataract, left eye (principal); I10 Essential (primary) hypertension; M51.36 Other intervertebral disc degeneration, lumbar region; I25.2 Old myocardial infarction; M47.893 Other spondylosis, cervicothoracic region; Z95.818 Presence of other cardiac implants and grafts
CPT/HCPCS: A9270-GY; J2250; J3010; V2632

== ENCOUNTER 2022-11-14 05:57 | Inpatient (IN) ==
[~2022-11-14 05:57] MED LIST changes: -Acetaminophen TAB* 325 MG PO PRN; -Buffered Lidocaine 0.9% SYRIN* 5 ML/SYR SYRINGE INTRADERM ONE; +Buffered Lidocaine 1% SYRIN 1 ml INTRADERM ONE; -Cyclopentolate 1% OPTH.SOL* 2 ML BTL ONE; +HYDROcodone/ACETAMIN 5/325 mg TAB PO PRN; -Ketorolac 0.5% OPHTH (NF) 0.5 % 5 ML BTL ONE; +Lactated Ringers 1000 ml BAG 1,000 ML IV SCH; -Lidocaine 1% MPF* 2 ML VIAL ONE; +Metoclopramide 5 MG/ML VIAL (10 mg) IV PRN; +Naloxone 0.4 mg VIAL 0.4 mg/ml 1 ml VIAL IV PRN; -Neomycin/Polymy/Dex OPHTH.OIN* 3.5 GM ONE; +Ondansetron 4 mg VIAL 2 MG/ML 2 ml VIAL IV PRN; -Phenylephrine 2.5% OPTH.SOL* 2 ML BTL ONE; -Tetracaine 0.5% OPTH.SOL 4 ML* 1 DROP BTL ONE; -Tropicamide 1% OPTH.SOL* BTL ONE; +fentaNYL 100 mcg/2 ml 50 MCG/ML VIAL IV PRN
[2022-11-14] MEDS ORDERED: Glycopyrrolate IV 0.2 MG/ML 1 ML VIAL ONE (05:58)
[2022-11-14] MEDS ORDERED: Lidocaine 2% PF 5 ML VIAL ONE (05:58)
[2022-11-14] MEDS ORDERED: Propofol 10 MG/ML 20 ML BTL ONE (05:58)
[2022-11-14] MEDS ORDERED: fentaNYL 100 mcg/2 ml 50 MCG/ML VIAL ONE ×2 (06:12→15:42)
[2022-11-14] MEDS ORDERED: Rocuronium 50 mg VIAL 10 mg/ml 5 ml VIAL (50 mg) ONE ×3 (06:12→12:55)
[2022-11-14] MEDS ORDERED: Atropine 1 MG/ML INJ 1 ML VIAL ONE (06:18)
[2022-11-14] MEDS ORDERED: ceFAZolin 2 GM in NS PREMIX 2 GM/100 ML BAG IVPB ONE (06:37)
[2022-11-14] MEDS ORDERED: Bupivacaine 0.25% EPI 200,000 30 ML SDV ONE (06:53)
[2022-11-14 07:22] LABS: Rapid COVID-19 Molecular Undetected (Undetected)
[2022-11-14] MEDS ORDERED: Morphine 10 MG/ML VIAL (1 ml) ONE ×2 (08:25→10:28)
[2022-11-14] MEDS ORDERED: Ondansetron 4 mg VIAL 2 MG/ML 2 ml VIAL ONE ×2 (08:59→15:34)
[2022-11-14] MEDS ORDERED: Dexamethasone IV 4 MG/ML VIAL 1 ml VIAL ONE ×2 (08:59→15:34)
[2022-11-14] MEDS ORDERED: Methylene Blue 0.5 % 50 MG/10 ML AMP IV ONE (10:29)
[2022-11-14] MEDS ORDERED: ceFAZolin VIAL VIAL ONE (11:05)
[2022-11-14] MEDS ORDERED: Ondansetron 4 mg VIAL 2 MG/ML 2 ml VIAL IV PRN (13:31)
[2022-11-14] MEDS ORDERED: HYDROmorphone 0.5 MG/0.5 ML SYRINGE IV SLOW PU PRN (13:40)
[2022-11-14] MEDS ORDERED: Acetaminophen IV 1 GM/100ML 1,000 MG/100 ML BAG IV ONE ×2 (14:22→15:55)
[2022-11-14] MEDS: Acetaminophen IV 1 GM/100ML 1,000 MG/100 ML BAG IV SCH ×2 (14:24→22:14)
[2022-11-14] MEDS ORDERED: Phenylephrine 40 mcg/mL 10mL (400mcg) SYRINGE ONE (15:21)
[2022-11-14 17:20] LABS: Urine Appearance Clear; Urine Bilirubin Negative (Negative); Urine Blood 1+ (Negative); Urine Color Yellow; Urine Glucose Negative (Negative); Urine Ketones Negative (Negative); Urine Nitrite Negative (Negative); Urine Protein 1+(30 mg/dL) (Negative); Urine Specific Gravity 1.026 (1.002-1.030); Urine Urobilinogen Negative (Negative)
[2022-11-14 17:26] LABS: Urine Bacteria 1+ (Absent); Urine Red Blood Cell 1+(3-5/hpf) (Absent); Urine White Blood Cell 1+(6-10/hpf) (Absent)
[2022-11-14] MEDS: Lactated Ringers 1000 ml BAG 1,000 ML IV SCH (17:28)
[2022-11-15] MEDS: Heparin 5000 UNITS/ML 1 mL VIAL SUBCUT SCH ×3 (05:13→21:24)
[2022-11-15] MEDS: Acetaminophen IV 1 GM/100ML 1,000 MG/100 ML BAG IV SCH ×3 (05:15→22:46)
[2022-11-15] MEDS: Lactated Ringers 1000 ml BAG 1,000 ML IV SCH (07:53)
[2022-11-15] MEDS: Pantoprazole VIAL 40 MG VIAL IV SCH (08:02)
[2022-11-15] MEDS: HYDROcodone/ACET. 7.5/325 LIQ 15 ML UDC PO PRN ×2 (13:32→19:28)
[2022-11-16] MEDS: Heparin 5000 UNITS/ML 1 mL VIAL SUBCUT SCH ×3 (05:57→21:03)
[2022-11-16] MEDS: Acetaminophen IV 1 GM/100ML 1,000 MG/100 ML BAG IV SCH ×3 (06:00→23:02)
[2022-11-16 10:27] LABS: ABS Basophils 0.1 10^3/uL (0.0-0.1); ABS Eosinophils 0.1 10^3/uL (0.0-0.5); ABS Lymphocytes 0.9 10^3/uL (1.0-4.8); ABS Monocytes 0.8 10^3/uL (0.0-0.9); ABS Neutrophils 8.8 10^3/uL (1.5-7.6); ABS Nucleated RBC 0.01 10^3/ul; Eosinophil % 0.9 %; Hematocrit 44.7 % (35-45); Hemoglobin 15.2 g/dL (11.5-14.3); Mean Corpuscular Hgb Conc 33.9 g/dL (31-36); Mean Corpuscular Volume 85.6 fL (80-97); Mean Platelet Volume 7.1 fL (7.5-11.2); Nucleated Red Blood Cells % 0.1 /100 WBC (0.0-0.4); Platelet Count 189 10^3/uL (150-450); Red Blood Count 5.22 10^6/uL (3.63-4.92); Red Cell Distribution Width 14.8 % (12-17); White Blood Count 10.6 10^3/uL (3.8-11.8)
[2022-11-16 10:43] LABS: Calcium 9.6 mg/dL (8.6-10.3); Creatinine, Serum 0.77 mg/dL (0.51-0.95); Potassium 3.4 mmol/L (3.5-5.0)
[2022-11-16] MEDS ORDERED: Potassium Chlor 20 meq TAB.ER PO ONE (11:32)
[2022-11-16] MEDS: Pantoprazole VIAL 40 MG VIAL IV SCH (12:11)
[2022-11-16] MEDS: HYDROcodone/ACET. 7.5/325 LIQ 15 ML UDC PO PRN (15:33)
[2022-11-17] MEDS: Acetaminophen IV 1 GM/100ML 1,000 MG/100 ML BAG IV SCH ×3 (06:10→15:30)
[2022-11-17] MEDS: Heparin 5000 UNITS/ML 1 mL VIAL SUBCUT SCH ×3 (06:11→21:07)
[2022-11-17] MEDS: Pantoprazole VIAL 40 MG VIAL IV SCH (09:14)
[2022-11-18] MEDS: Heparin 5000 UNITS/ML 1 mL VIAL SUBCUT SCH ×3 (06:13→20:17)
[2022-11-18] MEDS: Pantoprazole VIAL 40 MG VIAL IV SCH (08:43)
[2022-11-18] MEDS: HYDROcodone/ACET. 7.5/325 LIQ 15 ML UDC PO PRN (20:15)
[2022-11-19] MEDS: Heparin 5000 UNITS/ML 1 mL VIAL SUBCUT SCH (06:51)
[2022-11-19] MEDS: Pantoprazole VIAL 40 MG VIAL IV SCH (08:44)
[2022-11-19 09:58] VITALS: BP 132/81
== END 2022-11-19 13:10 | disposition home or self-care (01) | DRG 327 ==
LOC: AA 05:57 → SSU 17:22
PROVIDERS: ADMIT Surgery; ATTEND Surgery